=== PATIENT | male | born 1995 | race Caucasian/White ===

== ENCOUNTER 2024-11-18 18:47 | Emergency (ER) | payer OTHER, SELFPAY ==
[2024-11-18 18:48] VITALS: BP 143/91; PULSE 87; RESP 13; TEMP 36.3; O2SAT 97; BMI 27.1
--- NOTE | 2024-11-18 19:00 | RAD_ITS ---
EXAM: Right elbow CLINICAL HISTORY: Fall, elbow pain COMPARISON: None TECHNIQUE: Three-view FINDINGS: Acute nondisplaced fracture of the radial head. Visible posterior fat pad consistent with hemarthrosis. RAD/Elbow 2 Views IMPRESSION: Acute nondisplaced fracture of the radial head. Reading Location: [id number]
--- NOTE | 2024-11-18 20:57 | EDS_ITS ---
HPI History of Present Illness Chief Complaint: Upper Extremity Injury Narrative Narrative: 29-year-old male who denies significant past medical history, [id number], presents with injury that he sustained at work approximately 2-1/2 hours ago. 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 He fell forward. He now has pain diffusely throughout his right elbow that is worse with movement. He denies other injuries. He may have hit his left hand but states that is fine. No hitting of his head or loss of consciousness, no neck pain or other injury. [facility] Medical History Fracture of radial neck, right, closed Physical exam, pre-employment Home Medications ?Medication ?Instructions ?Recorded ?Last Taken ?Type hydrocodone-acetaminophen 5-325mg 1 tab PO Q6H PRN PRN Pain 3 days 11/18/24 Unknown Rx 5mg-325mg #12 TABLETS Allergy/AdvReac Type Severity Reaction Status Date / Time No Known Allergies Allergy Verified 11/18/24 18:50 Social History Smoking Status: Unknown if ever smoked ROS ROS ED ROS Narrative Review of systems positive for right elbow pain. No hitting of the head or loss of consciousness, no left hand or wrist pain. No right hand pain or wrist pain. EXAM Physical Exam Narrative Exam Narrative: GCS 15. ABCs intact. Cardiovascular examination regular rate and rhythm. Lungs are clear to auscultation bilaterally. Abdomen soft and nontender with positive bowel sounds. Inspection of the right elbow does reveal tenderness diffusely mainly on the lateral aspect with mild tenderness over the radial head. No clavicular or shoulder tenderness, no clinical dislocation of shoulder. Palpable radial pulse right. Able to oppose thumb, right. Positive pain with supination/pronation of right wrist. Const Vital Signs: 11/18/24 18:48 Temperature 97.4 F L Temperature Source Oral Pulse Rate 87 Respiratory Rate 13 Blood Pressure 143/91 H Blood Pressure Mean 108 Pulse Ox 97 Oxygen Delivery Method Room Air MDM MDM MDM Narrative Medical decision making narrative: Differential diagnosis includes but not limited to elbow contusion versus supracondylar fracture versus radial head fracture. X-rays were obtained per protocol. X-ray of the right elbow interpreted by myself independently show nondisplaced radial head fracture. I reviewed the radiology report which confirms my independent interpretation. Patient was discussed with Dr. Magana with orthopedics. It was felt that that he can be treated with a sling and not have to have a splint which would limit his bathing capabilities. He was told that he cannot have use of his right arm and that he should wear his sling while at work. He was given a note for limitations of no use of his right arm until cleared by orthopedics. He was given a Given tablet here and prescription written for the next 3 days for total of 12 tablets. Disposition is discharged in stable condition. Radiography Diagnostic Testing: Clinical Impression(s) from Imaging Studies Elbow X-Ray 11/18/24 19:00 IMPRESSION: Acute nondisplaced fracture of the radial head. Reading Location: [facility] Discharge Plan Triage Chief Complaint: Upper Extremity Injury ED Provider: Bernardo Tee Dx/Rx/DC Orders Clinical Impression: Fracture of radial head, right, closed, Fall from skateboard, initial encounter Instructions: ED Radial Head Fracture Prescriptions: New hydrocodone-acetaminophen 5-325 mg tablet 1 tab PO Q6H PRN PRN (Reason: Pain) 3 Days Qty: 12 0RF Primary Care Provider: Care Physician,No Primary Referrals: Tex Magana MD [Med Staff - Active Staff] - 1 Week Care Physician,No Primary [Primary Care Provider] - [facility] [Non-Staff] - As Needed Activity Restrictions/Additional Instructions: Follow-up with Dr. Magana next week. Wear the sling at all times during the day. You may remove it for bathing and sleeping, but no that if you move your right forearm, you will have pain. You may need to follow-up with the [facility] for the [facility] claim. Print Language: Czech Disposition Disposition: Home, Self Care Discharge Date/Time: 11/18/24 21:53
--- NOTE | 2024-11-18 21:07 | CON.PCM.OR_ITS ---
HPI Consult Data Date of Consult: 11/18/24 HPI Narrative HPI Narrative: ISABEL PALACIOS is a 29 M who presents R radial neck fracture. COUNTS INCLUDE 234 BEDS AT THE [facility] Medical History (Updated 11/18/24 @ 21:07 by Tex Magana MD) Fracture of radial neck, right, closed Physical exam, pre-employment Allergy/AdvReac Type Severity Reaction Status Date / Time No Known Allergies Allergy Verified 11/18/24 18:50 Vital Signs Vital Signs Vital Signs: 11/18/24 18:48 Temperature 97.4 F L Temperature Source Oral Pulse Rate 87 Respiratory Rate 13 Blood Pressure 143/91 H Blood Pressure Mean 108 Pulse Ox 97 Oxygen Delivery Method Room Air Weight Weight: 200 lb Body Mass Index (BMI) 27.1 Imaging Radiology Impression Elbow X-Ray 11/18/24 19:00 IMPRESSION: Acute nondisplaced fracture of the radial head. Reading Location: [facility] Assessment & Plan Assessment/Plan (1) Fracture of radial neck, right, closed: PLAN: ISABEL PALACIOS is a 29 M who presents R radial neck fracture, non displaced. Called by ED doc at 907pm. Closed NVI. Sling, rest ice. FU within 3-5 business days. Thank you. In agreement with plan.
[2024-11-18] MEDS: HYDROcodone Bitartrate/Apap 5/325 Tablet PO (21:22)
== END 2024-11-18 21:53 | disposition home or self-care (01) ==
PROVIDERS: Emergency Provider Emergency Medicine; Visit Provider Emergency Medicine
DX: S52.124A Nondisplaced fracture of head of right radius, initial encounter for closed fracture (principal); V00.131A Fall from skateboard, initial encounter
CPT/HCPCS: 73070; 99283